=== PATIENT | male | born 1940 | race Caucasian/White ===

== ENCOUNTER 2017-06-08 14:16 | Emergency (ER) | payer MEDICARE, BC ==
[~2017-06-08] VITALS: Ht 172.7 cm; Wt 105.0 kg
[~2017-06-08 14:16] MED LIST: ASPI1TAB69 PO; ATOR40TA16 PO; CALTTAB5 PO; ICAPCAP PO; LISI10TA3 PO; METO1TAB9 PO; OMEG1CAP28 PO; OMEG1CAP53 PO; VITA500T PO
[2017-06-08 14:30] VITALS: BP 145/65; PULSE 60; RESP 16; TEMP 98; O2SAT 98
[2017-06-08] MEDS ORDERED: ASPI-516 CHEW (14:53)
[2017-06-08] MEDS ORDERED: CALC1TAB87 PO (14:57)
[2017-06-08] MEDS ORDERED: VITA500T83 PO (14:57)
[2017-06-08] MEDS ORDERED: VESI5TAB2 PO (14:57)
--- NOTE | 2017-06-08 15:30 | PD ---
HPI Chief Complaint: Laceration/Skin Injury Time Seen by Provider: 15:20 Travel History International Travel<30 days: No Contact w/Intl Traveler<30days: No Traveled to known affect area: No History of Present Illness HPI 77-year-old male presents to the emergency department for evaluation of bilateral elbow skin tears after a trip and fall that occurred approximately an hour and a half prior to arrival. Patient states he is walking from one room of the house to another when he tripped and fell landing on his bilateral elbows. He denies any head injury or LOC. No neck pain or back pain. No chest pain or abdominal pain. No nausea, vomiting, diarrhea. He reports skin tears the bilateral posterior elbows. He denies any loss of range of motion or pain with movement of the left elbows. He denies any hip or pelvic pain. He has been ambulatory since the fall. He is not on anticoagulants. He denies any headache, visual changes. He states his tetanus immunization was one year ago. No exacerbating or alleviating factors. Moderate severity. PFSH Past Medical History Hx Anticoagulant Therapy: Yes (ASA) Cancer: No Cardiac Catheterization: Yes Cardiovascular Problems: Yes (triple bypass 2001) High Cholesterol: Yes Coronary Artery Disease: Yes Diabetes: No Diminished Hearing: No Endocrine: No Glaucoma: No Genitourinary: No Hepatitis: No Hiatal Hernia: No Hypertension: Yes Immune Disorder: No Musculoskeletal: No Neurologic: No Psychiatric: No Reproductive: No Respiratory: Yes (Sleep apnea) Immunizations Current: Yes Myocardial Infarction: Yes Sleep Apnea: Yes Thyroid Disease: No Past Surgical History Abdominal Surgery: No AICD: No Cardiac Surgery: Yes (HEART CATH 2014; OPEN HEART CABG X2 2001) Coronary Artery Bypass Graft: Yes Coronary Stent: Yes Ear Surgery: No Endocrine Surgery: No Eye Surgery: Yes Genitourinary Surgery: No Gynecologic Surgery: No Joint Replacement: No Oral Surgery: No Pacemaker: No Thoracic Surgery: No Other Surgery: Yes (Vasectomy ) Social History Alcohol Use: No Tobacco Use: No Substance Use: No Allergies-Medications (Allergen,Severity, Reaction): Coded Allergies: No Known Allergies (Verified Adverse Reaction, Unknown, 06/08/17) Reported Meds & Prescriptions Reported Meds & Active Scripts Active Reported Vesicare (Solifenacin) 5 Mg Tab 5 Mg PO DAILY Vitamin C ER (Ascorbic Acid) 500 Mg Franky 500 Mg PO Calcium 600 with Vitamin D (Calcium Carbonate-Cholecalciferol) 600-400 mg-Unit Tab 1 Tab PO DAILY Aspirin 81 Mg Chew 81 Mg CHEW DAILY Lisinopril 10 Mg Tab 10 Mg PO DAILY Lovaza (Fsuve-9-Hwav Ethyl Esters) 1 Gm Cap 1 Gm PO BID Metoprolol Succinate ER 24 HR (Metoprolol Succinate) 50 Mg Tab 50 Mg PO DAILY Atorvastatin (Atorvastatin Calcium) 40 Mg Tab 40 Mg PO HS Review of Systems Except as stated in HPI: all other systems reviewed are Neg Physical Exam Narrative GENERAL: Well-nourished, well-developed elderly male patient, afebrile. SKIN: Focused skin assessment warm/dry. Patient has skin tears to bilateral posterior elbows. No lacerations. HEAD: Normocephalic. Atraumatic. ENT: Mucosa pink and moist. No erythema or exudates. No uvular edema. No uvular , palatal, or tonsillar deviation. Airway patent. Nasal turbinates appear normal without nasal blood, purulent drainage or septal hematoma. Bilateral tympanic membranes are clear without erythema or perforation. EYES: No scleral icterus. No injection or drainage. NECK: Supple, trachea midline. No JVD or lymphadenopathy. CARDIOVASCULAR: Regular rate and rhythm without murmurs, gallops, or rubs. RESPIRATORY: Breath sounds equal bilaterally. No accessory muscle use. Lungs sounds are clear to auscultation. GASTROINTESTINAL: Abdomen soft, non-tender, nondistended. MUSCULOSKELETAL: No cyanosis, or edema. No bony point tenderness. He has full flexion and extension of bilateral elbows without pain or stiffness. BACK: Nontender without obvious deformity. No CVA tenderness. No midline spinal tenderness. He has full rotation of the cervical spine without pain or stiffness. Data Data Last Documented VS Vital Signs Date Time Temp Pulse Resp B/P (MAP) Pulse Ox O2 Delivery O2 Flow Rate FiO2 06/08/17 14:30 98.0 60 16 145/65 (91) 98 Orders Orders Wound Care (06/08/17 15:26) MDM Medical Decision Making Medical Screen Exam Complete: Yes Emergency Medical Condition: Yes Medical Record Reviewed: Yes Differential Diagnosis Skin tear versus abrasion versus laceration Narrative Course 77-year-old male presents to the emergency department for evaluation of bilateral posterior elbow skin tears after a trip and fall. He denies any other injury. Physical exam is reassuring. Wound care is completed to bilateral skin tears Steri-Strips and dressings applied. He is instructed on proper wound care. The patient was discharged in stable condition with instructions, including return instructions and follow up instructions. Diagnosis Primary Impression: Skin tear of elbow without complication Qualified Codes: S51.019A - Laceration without foreign body of unspecified elbow, initial encounter Referrals: Primary Care Physician call for appointment Patient Instructions: General Instructions, Skin Tear (ED) Additional Instructions: Keep skin tears clean and dry. Steri-Strips will fall off on their own. Follow-up with your primary care physician. Return to the emergency department for any acute worsening of symptoms. Med/Other Pt SpecificInfo: No Change to Meds Disposition: 01 DISCHARGE HOME Condition: Stable Rebekah Núñez Jun 08, 2017 15:30
== END 2017-06-08 15:55 | disposition home or self-care (01) ==
LOC: PHEFT 14:16
DX: S51.011A Laceration without foreign body of right elbow, initial encounter (principal); S51.012A Laceration without foreign body of left elbow, initial encounter; E78.00 Pure hypercholesterolemia, unspecified; I10 Essential (primary) hypertension; I25.10 Atherosclerotic heart disease of native coronary artery without angina pectoris; I25.2 Old myocardial infarction; G47.30 Sleep apnea, unspecified; W01.0XXA Fall on same level from slipping, tripping and stumbling without subsequent striking against object, initial encounter; Z95.1 Presence of aortocoronary bypass graft; Z95.5 Presence of coronary angioplasty implant and graft; Z79.82 Long term (current) use of aspirin
CPT/HCPCS: 99282

== ENCOUNTER 2017-06-12 11:25 | Emergency (ER) | payer MEDICARE, BC ==
[~2017-06-12] VITALS: Ht 172.7 cm; Wt 103.9 kg
[~2017-06-12 11:25] MED LIST changes: +ASPI-516 CHEW; -ASPI1TAB69 PO; +CALC1TAB87 PO; -CALTTAB5 PO; -ICAPCAP PO; -OMEG1CAP28 PO; +VESI5TAB2 PO; -VITA500T PO; +VITA500T83 PO
[2017-06-12 11:36] VITALS: BP 163/79; PULSE 55; RESP 16; TEMP 97.2; O2SAT 98
--- NOTE | 2017-06-12 12:56 | PD ---
HPI Chief Complaint: Wound/Suture/Staple Re-Check Time Seen by Provider: 11:52 Travel History International Travel<30 days: No Contact w/Intl Traveler<30days: No Traveled to known affect area: No History of Present Illness HPI 77-year-old male presents to the ED for evaluation of skin tears to bilateral elbows, right greater than left. He states that the dressings are stuck to the area and he is afraid to pull them off. He denies fever, chills, numbness, tingling, weakness, limitations range of motion of either extremity. PFSH Past Medical History Hx Anticoagulant Therapy: Yes (ASA) Cancer: No Cardiac Catheterization: Yes Cardiovascular Problems: Yes (triple bypass 2001) High Cholesterol: Yes Coronary Artery Disease: Yes Diabetes: No Diminished Hearing: No Endocrine: No Glaucoma: No Genitourinary: No Hepatitis: No Hiatal Hernia: No Hypertension: Yes Immune Disorder: No Musculoskeletal: No Neurologic: No Psychiatric: No Reproductive: No Respiratory: Yes (Sleep apnea) Immunizations Current: Yes Myocardial Infarction: Yes Sleep Apnea: Yes Thyroid Disease: No Past Surgical History Abdominal Surgery: No AICD: No Cardiac Surgery: Yes (HEART CATH 2014; OPEN HEART CABG X2 2001) Coronary Artery Bypass Graft: Yes Coronary Stent: Yes Ear Surgery: No Endocrine Surgery: No Eye Surgery: Yes Genitourinary Surgery: No Gynecologic Surgery: No Joint Replacement: No Oral Surgery: No Pacemaker: No Thoracic Surgery: No Other Surgery: Yes (Vasectomy ) Social History Alcohol Use: No Tobacco Use: No Substance Use: No Allergies-Medications (Allergen,Severity, Reaction): Coded Allergies: No Known Allergies (Verified Adverse Reaction, Unknown, 06/12/17) Reported Meds & Prescriptions Reported Meds & Active Scripts Active Reported Vesicare (Solifenacin) 5 Mg Tab 5 Mg PO DAILY Vitamin C ER (Ascorbic Acid) 500 Mg Franky 500 Mg PO Calcium 600 with Vitamin D (Calcium Carbonate-Cholecalciferol) 600-400 mg-Unit Tab 1 Tab PO DAILY Aspirin 81 Mg Chew 81 Mg CHEW DAILY Lisinopril 10 Mg Tab 10 Mg PO DAILY Lovaza (Sfipa-7-Nrla Ethyl Esters) 1 Gm Cap 1 Gm PO BID Metoprolol Succinate ER 24 HR (Metoprolol Succinate) 50 Mg Tab 50 Mg PO DAILY Atorvastatin (Atorvastatin Calcium) 40 Mg Tab 40 Mg PO HS Review of Systems Except as stated in HPI: all other systems reviewed are Neg Physical Exam Narrative GENERAL: Well-nourished, well-developed white male in no acute distress. SKIN: Focused skin assessment warm/dry. SKIN TEAR RIGHT ELBOW: 4-5 cm with Steri-Strips in place. No signs of infection. SKIN TEAR LEFT ELBOW: Approximately 1 cm, Steri-Strips are loose. No signs of infection. HEAD: Normocephalic. EYES: No scleral icterus. No injection or drainage. NECK: Supple, trachea midline. No JVD or lymphadenopathy. CARDIOVASCULAR: Regular rate and rhythm without murmurs, gallops, or rubs. RESPIRATORY: Breath sounds equal bilaterally. No accessory muscle use. GASTROINTESTINAL: Abdomen soft, non-tender, nondistended. MUSCULOSKELETAL: No cyanosis, or edema. BACK: Nontender without obvious deformity. No CVA tenderness. Data Data Last Documented VS Vital Signs Date Time Temp Pulse Resp B/P (MAP) Pulse Ox O2 Delivery O2 Flow Rate FiO2 06/12/17 11:36 97.2 55 16 163/79 (107) 98 MDM Medical Decision Making Medical Screen Exam Complete: Yes Emergency Medical Condition: Yes Differential Diagnosis Wound recheck versus wound infection versus skin tear versus other Narrative Course 77-year-old male presents to the ED for evaluation of skin tears to bilateral elbows, right greater than left. He states that the dressings are stuck to the area and he is afraid to pull them off. He denies fever, chills, numbness, tingling, weakness, limitations range of motion of either extremity. Water was used was withheld for removed from the underlying skin tears. Both are well healing without signs of infection. Left elbow required new Steri-Strips. Wounds were dressed. Patient was provided detailed wound care instructions. He is stable and discharged home. Diagnosis Primary Impression: Encounter for wound re-check Referrals: Primary Care Physician Patient Instructions: General Instructions, Skin Tear (ED), Steristrips (ED) Additional Instructions: Keep the wounds clean and dry. It's OK for water to run over the Steri-Strips in the shower but do not scrub the area profusely. Do not submerge the wounds. Monitor for signs of infection such as redness, discharge, warmth, fevers or chills. Follow-up with the primary care provider. Return to the ED for any urgent or emergent medical condition. Disposition: 01 DISCHARGE HOME Condition: Stable Shagufta Power Jun 12, 2017 12:56
== END 2017-06-12 13:18 | disposition home or self-care (01) ==
LOC: PHEFT 11:25
DX: Z51.89 Encounter for other specified aftercare (principal); E78.00 Pure hypercholesterolemia, unspecified; I25.10 Atherosclerotic heart disease of native coronary artery without angina pectoris; I10 Essential (primary) hypertension; I21.9 Acute myocardial infarction, unspecified; G47.30 Sleep apnea, unspecified; Z79.82 Long term (current) use of aspirin; Z79.899 Other long term (current) drug therapy
CPT/HCPCS: 99281

== ENCOUNTER 2017-10-23 15:17 | Emergency (ER) | payer MEDICARE, BC ==
[~2017-10-23] VITALS: Ht 170.2 cm; Wt 101.3 kg
[2017-10-23 15:18] VITALS: BP 180/121; PULSE 75; RESP 18; TEMP 99.5; O2SAT 97
[2017-10-23 15:50] VITALS: BP 141/62; PULSE 84; RESP 16; TEMP 98.8; O2SAT 97
--- NOTE | 2017-10-23 15:53 | PD ---
HPI Chief Complaint: Fever Time Seen by Provider: 15:41 Travel History International Travel<30 days: No Contact w/Intl Traveler<30days: No Traveled to known affect area: No History of Present Illness HPI The patient 77. He arrives to the ER describing abrupt onset of chills and shakes. He can stop the shaking evidently and so he came to the ED. Onset of symptoms is been a couple hours prior to ER arrival. Occurred while he was watching TV. Patient has been feeling normal over the past few days. He spent yesterday walking around the house and helping his out with laundry. He denies vomiting. No cough. No abdominal pain. He describes a chest pain in the left side however he states he feels pretty much every day for the past several years ever since coronary catheterization with stent placement. PFSH Past Medical History Hx Anticoagulant Therapy: Yes (ASA) Cancer: No Cardiac Catheterization: Yes Cardiovascular Problems: Yes (triple bypass 2001) High Cholesterol: Yes Coronary Artery Disease: Yes Diabetes: No Diminished Hearing: No Endocrine: No Glaucoma: No Genitourinary: No Hepatitis: No Hiatal Hernia: No Hypertension: Yes Immune Disorder: No Musculoskeletal: No Neurologic: No Psychiatric: No Reproductive: No Respiratory: Yes (Sleep apnea) Immunizations Current: Yes Myocardial Infarction: Yes Sleep Apnea: Yes Thyroid Disease: No Past Surgical History Abdominal Surgery: No AICD: No Cardiac Surgery: Yes (HEART CATH 2014; OPEN HEART CABG X2 2001) Coronary Artery Bypass Graft: Yes Coronary Stent: Yes Ear Surgery: No Endocrine Surgery: No Eye Surgery: Yes Genitourinary Surgery: No Gynecologic Surgery: No Joint Replacement: No Oral Surgery: No Pacemaker: No Thoracic Surgery: No Other Surgery: Yes (Vasectomy ) Social History Alcohol Use: No Tobacco Use: No Substance Use: No Allergies-Medications (Allergen,Severity, Reaction): Coded Allergies: No Known Allergies (Verified Adverse Reaction, Unknown, 10/23/17) Reported Meds & Prescriptions Reported Meds & Active Scripts Active Azithromycin 250 Mg Tab 250 Mg PO DIRECTED Take 2 tabs (500 mg) on day 1 then 1 tab daily x 4 days. Reported Donepezil 5 Mg Tab 5 Mg PO HS Donepezil 5 Mg Tab 5 Mg PO HS Vesicare (Solifenacin) 5 Mg Tab 5 Mg PO DAILY Vitamin C ER (Ascorbic Acid) 500 Mg Franky 600 Mg PO Calcium 600 with Vitamin D (Calcium Carbonate-Cholecalciferol) 600-400 mg-Unit Tab 1 Tab PO DAILY Aspirin 81 Mg Chew 81 Mg CHEW DAILY Lisinopril 10 Mg Tab 10 Mg PO DAILY Lovaza (Xjlwv-0-Dzzi Ethyl Esters) 1 Gm Cap 1 Gm PO BID Metoprolol Succinate ER 24 HR (Metoprolol Succinate) 50 Mg Tab 50 Mg PO DAILY Atorvastatin (Atorvastatin Calcium) 40 Mg Tab 40 Mg PO HS Review of Systems Except as stated in HPI: all other systems reviewed are Neg General / Constitutional: No: Fever Physical Exam Narrative GENERAL: Well-nourished well-developed 77-year-old male pleasant no acute distress Vital Signs Date Time Temp Pulse Resp B/P (MAP) Pulse Ox O2 Delivery O2 Flow Rate FiO2 10/23/17 16:00 97 Room Air 10/23/17 16:00 16 97 Room Air 10/23/17 15:50 85 16 97 Room Air 10/23/17 15:50 98.8 84 16 141/62 (88) 97 Room Air 10/23/17 15:18 99.5 75 18 180/121 (140) 97 SKIN: Warm and dry. HEAD: Atraumatic. Normocephalic. EYES: Pupils equal and round. No scleral icterus. No injection or drainage. ENT: No nasal bleeding or discharge. Mucous membranes pink and moist. NECK: Trachea midline. No JVD. CARDIOVASCULAR: Regular rate and rhythm. RESPIRATORY: No accessory muscle use. Clear to auscultation. Breath sounds equal bilaterally. GASTROINTESTINAL: Abdomen soft, non-tender, nondistended. Hepatic and splenic margins not palpable. MUSCULOSKELETAL: Extremities without clubbing, cyanosis, or edema. No obvious deformities. NEUROLOGICAL: Awake and alert. No obvious cranial nerve deficits. Motor grossly within normal limits. Five out of 5 muscle strength in the arms and legs. Normal speech. PSYCHIATRIC: Appropriate mood and affect; insight and judgment normal. Data Data Last Documented VS Vital Signs Date Time Temp Pulse Resp B/P (MAP) Pulse Ox O2 Delivery O2 Flow Rate FiO2 10/23/17 18:14 Room Air 10/23/17 17:30 84 16 103/46 (65) 97 10/23/17 15:50 98.8 Orders Orders Sepsis Workup Initiated (10/23/17 ) Electrocardiogram (10/23/17 15:42) Complete Blood Count With Diff (10/23/17 15:42) Comprehensive Metabolic Panel (10/23/17 15:42) Prothrombin Time / Inr (Pt) (10/23/17 15:42) Act Partial Throm Time (Ptt) (10/23/17 15:42) Lactic Acid Sepsis Protocol (10/23/17 15:42) Magnesium (Mg) (10/23/17 15:42) Lipase (10/23/17 15:42) Ckmb (Isoenzyme) Profile (10/23/17 15:42) Troponin I (10/23/17 15:42) Urinalysis - C+S If Indicated (10/23/17 15:42) Blood Culture (10/23/17 15:42) Blood Glucose (10/23/17 15:42) Ecg Monitoring (10/23/17 15:42) Iv Access Insert/Monitor (10/23/17 15:42) Oximetry (10/23/17 15:42) Oxygen Administration (10/23/17 15:42) CKMB (10/23/17 16:05) CKMB% (10/23/17 16:05) Chest, Single Ap (10/23/17 ) Ed Discharge Order (10/23/17 18:17) Azithromycin (Zithromax) (10/23/17 18:30) Labs Laboratory Tests Test 10/23/17 16:05 10/23/17 16:25 10/23/17 16:50 White Blood Count 7.2 TH/MM3 Red Blood Count 4.97 MIL/MM3 Hemoglobin 15.0 GM/DL Hematocrit 44.1 % Mean Corpuscular Volume 88.7 FL Mean Corpuscular Hemoglobin 30.1 PG Mean Corpuscular Hemoglobin Concent 34.0 % Red Cell Distribution Width 12.8 % Platelet Count 98 TH/MM3 Mean Platelet Volume 10.7 FL Neutrophils (%) (Auto) 93.1 % Lymphocytes (%) (Auto) 5.0 % Monocytes (%) (Auto) 0.7 % Eosinophils (%) (Auto) 0.5 % Basophils (%) (Auto) 0.7 % Neutrophils # (Auto) 6.6 TH/MM3 Lymphocytes # (Auto) 0.4 TH/MM3 Monocytes # (Auto) 0.1 TH/MM3 Eosinophils # (Auto) 0.0 TH/MM3 Basophils # (Auto) 0.1 TH/MM3 CBC Comment AUTO DIFF Differential Comment AUTO DIFF CONFIRMED Platelet Estimate LOW Platelet Morphology Comment NORMAL Prothrombin Time 10.8 SEC Prothromb Time International Ratio 1.1 RATIO Activated Partial Thromboplast Time 20.0 SEC Blood Urea Nitrogen 17 MG/DL Creatinine 0.89 MG/DL Random Glucose 83 MG/DL Total Protein 7.2 GM/DL Albumin 3.7 GM/DL Calcium Level 9.5 MG/DL Magnesium Level 2.1 MG/DL Aspartate Amino Transf (AST/SGOT) 27 U/L Alanine Aminotransferase (ALT/SGPT) 33 U/L Total Bilirubin 1.1 MG/DL Sodium Level 139 MEQ/L Potassium Level 4.6 MEQ/L Chloride Level 104 MEQ/L Carbon Dioxide Level 29.3 MEQ/L Anion Gap 6 MEQ/L Estimat Glomerular Filtration Rate 83 ML/MIN Total Creatine Kinase 111 U/L Creatine Kinase MB 1.3 NG/ML Troponin I LESS THAN 0.02 NG/ML Lipase 84 U/L Lactic Acid Level 2.1 mmol/L Urine Collection Type CATH Urine Color YELLOW Urine Turbidity CLEAR Urine pH 6.0 Urine Specific [place] 1.020 Urine Protein NEG mg/dL Urine Glucose (UA) NEG mg/dL Urine Ketones NEG mg/dL Urine Occult Blood NEG Urine Nitrite NEG Urine Bilirubin NEG Urine Urobilinogen 0.2 MG/DL Urine Leukocyte Esterase NEG Microscopic Urinalysis Comment CULT NOT INDICATED MDM Medical Decision Making Medical Screen Exam Complete: Yes Emergency Medical Condition: Yes Differential Diagnosis Pneumonia, UTI, viral syndrome, anemia Narrative Course CBC & BMP Diagram 10/23/17 16:05 Total Protein 7.2, Albumin 3.7, Calcium Level 9.5, Magnesium Level 2.1, Aspartate Amino Transf (AST/SGOT) 27, Alanine Aminotransferase (ALT/SGPT) 33, Total Bilirubin 1.1 H Lactic acid is 2.1 Troponins less than 0.02 Lipase is 84 Urinalysis shows no UTI Chest x-ray shows a density at the right base The patient is hemodynamically stable and well-appearing overall. We will give the first dose of azithromycin now and a prescription to go home with. Follow- up with primary and with podiatry expeditiously. Patient agreeable w plan. Diagnosis Primary Impression: PNA (pneumonia) Qualified Codes: J18.1 - Lobar pneumonia, unspecified organism Referrals: Milliron,Hilaree DPM Primary Care Physician Med/Other Pt SpecificInfo: Prescription(s) given Scripts Azithromycin (Azithromycin) 250 Mg Tab 250 MG PO DIRECTED for Infection, #6 TAB 0 Refills Take 2 tabs (500 mg) on day 1 then 1 tab daily x 4 days. Prov: Sidney Powell MD 10/23/17 Disposition: 01 DISCHARGE HOME Condition: Stable Sidney Powell MD October 23, 2017 15:53
[2017-10-23 16:00] VITALS: RESP 16; O2SAT 97
[2017-10-23 16:27] LABS: CHLORIDE 104 MEQ/L (98-107); SODIUM (NA) 139 MEQ/L (136-145)
[2017-10-23 16:30] VITALS: BP 100/47; PULSE 81; RESP 16; O2SAT 97
[2017-10-23 16:30] LABS: CALCIUM 9.5 MG/DL (8.5-10.1)
[2017-10-23 16:31] LABS: ALBUMIN 3.7 GM/DL (3.4-5.0); BICARBONATE 29.3 MEQ/L (21.0-32.0); BLOOD UREA NITROGEN 17 MG/DL (7-18); GLUCOSE,RANDOM 83 MG/DL (74-106); MAGNESIUM 2.1 MG/DL (1.5-2.5)
[2017-10-23 16:33] LABS: ALT (GPT) 33 U/L (12-78); AST (GOT) 27 U/L (15-37)
[2017-10-23 16:34] LABS: CREATININE 0.89 MG/DL (0.60-1.30); GLOMERULAR FILTRATION RATE 83 ML/MIN (>89)
[2017-10-23 16:35] LABS: TOTAL BILIRUBIN ADULT 1.1 MG/DL (0.2-1.0); TOTAL PROTEIN 7.2 GM/DL (6.4-8.2)
[2017-10-23 16:36] LABS: ALKALINE PHOSPHATASE 76 U/L (45-117); AUTOMATED NEUTROPHIL # 6.6 TH/MM3 (1.8-7.7); BASOPHIL # 0.1 TH/MM3 (0-0.2); BASOPHIL % 0.7 % (0.0-2.0); EOSINOPHIL % 0.5 % (0.0-4.0); HEMATOCRIT 44.1 % (39.0-51.0); LYMPHOCYTE # 0.4 TH/MM3 (1.0-4.8); MEAN CELL VOLUME 88.7 FL (80.0-100.0); MEAN CORPUSCULAR HEMOGLOBIN 30.1 PG (27.0-34.0); MEAN PLATELET VOLUME 10.7 FL (7.0-11.0); MONO % 0.7 % (0.0-8.0); MONOCYTE # 0.1 TH/MM3 (0-0.9); NEUT % 93.1 % (16.0-70.0); PLATELET COUNT 98 TH/MM3 (150-450); RED BLOOD COUNT 4.97 MIL/MM3 (4.50-5.90); RED CELL DISTRIBUTION WIDTH 12.8 % (11.6-17.2); WHITE BLOOD COUNT 7.2 TH/MM3 (4.0-11.0)
[2017-10-23 16:39] LABS: TROPONIN I LESS THAN 0.02 NG/ML (0.02-0.05)
[2017-10-23 17:05] LABS: BILIRUBIN, URINE NEG (NEG); BLOOD, URINE NEG (NEG); GLUCOSE,URINE NEG (NEG); KETONE, URINE NEG (NEG); NITRITE,URINE NEG (NEG); URINE COLOR YELLOW (YELLW/STRAW); URINE LEUKOCYTE ESTERASE NEG (NEG)
[2017-10-23 17:06] LABS: LACTIC ACID SEPSIS PROTOCOL 2.1 mmol/L (0.4-2.0)
[2017-10-23 17:09] LABS: INTERNATIONAL NORMALIZED RATIO 1.1 RATIO; PROTHROMBIN TIME - PATIENT 10.8 SEC (9.8-11.6)
[2017-10-23] MEDS ORDERED: DONE5TAB7 PO ×2 (17:20→17:21)
[2017-10-23 17:30] VITALS: BP 103/46; PULSE 84; RESP 16; O2SAT 97
--- NOTE | 2017-10-23 18:14 | RADRPT ---
EXAM DATE/TIME: 10/23/2017 17:41 [facility] COMPARISON: CHEST SINGLE AP, January 03, 2015, 12:47. EXTERNAL COMPARISON : [facility] October 23, 2017 INDICATIONS : Short of breath and fever started this afternoon. MEDICAL HISTORY : None. SURGICAL HISTORY : CABG. ENCOUNTER: Initial ACUITY: 1 day PAIN SCORE: 0/10 LOCATION: Bilateral chest FINDINGS: Patient is status post sternotomy. The heart size is normal. There is minimal density in the medial r ight base. The lungs are otherwise clear. CONCLUSION: Suspected minimal atelectasis or consolidation at the medial right base. Clarence Lopez MD on October 23, 2017 at 18:11 Board Certified Radiologist. This report was verified electronically.
[2017-10-23] MEDS ORDERED: AZIT250T3 PO (18:18)
[2017-10-23] MEDS ORDERED: AZITHROMYCIN 250 MG TAB PO ONE (18:30)
--- NOTE | 2017-10-24 12:30 | EKG ---
Date Performed: 10/23/2017 Time Performed: 15:51:53 PTAGE: 77 years EKG: Sinus rhythm MARKED LEFT AXIS DEVIATION RIGHT BUNDLE BRANCH BLOCK ABNORMAL ECG PREVIOUS TRACING : 01/03/2015 12.42 Compared to the prior tracing, right bundle branch block is now present and axis has also shifted leftward. DOCTOR: Marcelino Iglesias Interpretating Date/Time 10/24/2017 12:28:02
== END 2017-10-23 18:50 | disposition home or self-care (01) ==
LOC: PHED 15:17
DX: J18.1 Lobar pneumonia, unspecified organism (principal); R94.31 Abnormal electrocardiogram [ECG] [EKG]; R07.9 Chest pain, unspecified; E78.00 Pure hypercholesterolemia, unspecified; I25.10 Atherosclerotic heart disease of native coronary artery without angina pectoris; I10 Essential (primary) hypertension; I25.2 Old myocardial infarction; Z95.1 Presence of aortocoronary bypass graft; Z95.5 Presence of coronary angioplasty implant and graft
CPT/HCPCS: 71045; 80053; 81001; 82550; 82552; 83605; 83690; 83735; 84484; 85025; 85610; 85730; 87040; 93005; 99285